=== PATIENT | male | born 1950 | race Two or more races ===

== ENCOUNTER 2017-12-10 23:38 | Inpatient (IN) | payer MEDICAID, MEDICARE, OTHER ==
[~2017-12-10] VITALS: Ht 165.1 cm; Wt 92.6 kg
[2017-12-11] MEDS: HYDROcodone-ACET 10/325MG TAB PO ONE ×2 (03:00→07:48)
[2017-12-11] MEDS ORDERED: ACETAMINOPHEN 500 MG TAB PO PRN (04:15)
[2017-12-11] MEDS ORDERED: ONDANSETRON HCL 4 MG/2 ML VIAL IV PRN (04:15)
[2017-12-11] MEDS: SODIUM CHLORIDE 0.9% 1,000 ML IV SCH ×3 (05:55→23:25)
[2017-12-11] MEDS: HYDROcodone-ACET 5/325MG TAB PO PRN ×4 (06:47→23:15)
[2017-12-11] MEDS: CLINDAMYCIN 600MG IV 50 ML IV SCH ×3 (06:48→22:42)
[2017-12-11 07:39] VITALS: BP 116/85
[2017-12-11 08:10] VITALS: BP 151/87
[2017-12-11 08:59] VITALS: BP 151/87
[2017-12-11] MEDS: FAMOTIDINE 20 MG TAB PO SCH (10:21)
[2017-12-11] MEDS: cefTRIAXone 1GM/10ml IVPUSH 10 ML IV SCH (10:21)
[2017-12-11 11:15] LABS: Basophils # (auto) 0.1 uL; Basophils % (auto) 0.6 % (0.0-2.0); Eosinophils # (auto) 0.1 uL; Eosinophils % (auto) 1.3 % (0.0-7.0); Hematocrit 36.1 % (41.0-53.0); Hemoglobin 12.5 g/dL (13.5-17.5); Lymphocytes # (auto) 1.6 uL; Lymphocytes % (auto) 16.1 % (10.0-50.0); Mean Corpuscular Hemoglobin 30.8 pg (28.0-32.0); Mean Corpuscular Hgb Conc. 34.7 g/dL (32.0-36.0); Mean Corpuscular Volume 88.8 fL (80.0-100.0); Monocytes # (auto) 0.8 uL; Monocytes % (auto) 8.6 % (0.0-12.0); Neutrophils # (auto) 7.2 uL; Neutrophils % (auto) 73.4 % (37.0-80.0); Platelet Count (auto) 233 10^3/uL (140-450); Red Blood Cells 4.07 10^6/uL (4.5-5.90); Red Cell Distribution Width 13.5 % (11.8-14.3); White Blood Cell 9.8 10^3/uL (4.4-10.8)
[2017-12-11 11:27] LABS: INR 0.94 (0.9-1.15); Partial Thromboplastin Time 33.1 sec (23.78-33.04); Prothrombin Time 10.1 sec (9.27-12.13)
[2017-12-11 11:32] LABS: BUN/Creatinine Ratio 19.4; Calcium 8.1 mg/dL (8.5-10.1); Potassium 3.2 mmol/L (3.5-5.1)
[2017-12-11 11:40] LABS: Urine Bacteria NONE SEEN /hpf (None Seen); Urine Blood Negative /uL (Negative); Urine Specific Gravity 1.024 (1.001-1.035); Urine WBC 1 /hpf (0 - 3)
[2017-12-11 11:54] LABS: Alcohol, Urine < 3.0 mg/dL (0-5); Amphetamine Screen, Urine NEGATIVE (NEGATIVE); Barbiturate Scree,Urine NEGATIVE (NEGATIVE); Benzodiazephine Screen, Urine NEGATIVE (NEGATIVE); Cannabinoid Screen, Urine NEGATIVE (NEGATIVE); Cocaine Screen, Urine NEGATIVE (NEGATIVE); Opiate Scree,Urine POSITIVE (NEGATIVE); Phencyclidine Screen, Urine NEGATIVE (NEGATIVE)
[2017-12-11] MEDS ORDERED: DEXTROSE (50%) 50ML SYRG IV PRN (12:00)
[2017-12-11] MEDS ORDERED: POTASSIUM CHL 20 Meq TABLET PO ONE (12:00)
[2017-12-11] MEDS: InsuLIN REG 1unit/0.01ml Soln (100units/ml) SC SCH ×2 (12:00→18:27)
[2017-12-11] MEDS ORDERED: METOPROLOL TARTRATE 25 MG TAB PO ONE (12:00)
[2017-12-11] MEDS: ACCU-CHEK COMFORT CURVE STRIP VI SCH ×2 (12:22→17:31)
[2017-12-11 12:41] VITALS: BP_SYST 101; BP_SYST 171; BP_DIAS 60; BP_DIAS 92
[2017-12-11 16:55] VITALS: BP 144/83
[2017-12-11 22:00] VITALS: BP 136/71
[2017-12-11] MEDS: METOPROLOL TARTRATE 25 MG TAB PO SCH (22:42)
[2017-12-12] MEDS: InsuLIN REG 1unit/0.01ml Soln (100units/ml) SC SCH ×4 (01:13→18:05)
[2017-12-12] MEDS: HYDROcodone-ACET 5/325MG TAB PO PRN ×2 (04:22→09:08)
[2017-12-12 05:14] VITALS: BP 127/53
[2017-12-12] MEDS: CLINDAMYCIN 600MG IV 50 ML IV SCH ×3 (06:14→21:22)
[2017-12-12] MEDS: ACCU-CHEK COMFORT CURVE STRIP VI SCH ×4 (06:14→18:02)
[2017-12-12 08:08] VITALS: BP 160/90
[2017-12-12 09:00] VITALS: BP 160/90
[2017-12-12] MEDS: FAMOTIDINE 20 MG TAB PO SCH (09:09)
[2017-12-12] MEDS: cefTRIAXone 1GM/10ml IVPUSH 10 ML IV SCH (10:26)
[2017-12-12] MEDS: METOPROLOL TARTRATE 25 MG TAB PO SCH ×2 (10:51→21:22)
[2017-12-12] MEDS ORDERED: ceFAZolin 1GM/50ML 50 ML IV ONE (12:34)
[2017-12-12] MEDS ORDERED: GLYCOPYRROLATE 0.2 MG/ML 1ML VIAL IV ONE (12:45)
[2017-12-12] MEDS ORDERED: ROCURONIUM 10MG/ML 10ML VIAL IV ONE (12:45)
[2017-12-12] MEDS ORDERED: PROPOFOL 10 MG/ML 20 ML IV ONE (12:45)
[2017-12-12] MEDS ORDERED: NEOSTIGMINE 1 MG/ML INJ (10mg/10ML VIAL) IV ONE (12:45)
[2017-12-12] MEDS ORDERED: fentaNYL CITRATE 100 MCG/2 ML VL ONE (12:49)
[2017-12-12 13:00] VITALS: BP 128/70
[2017-12-12] MEDS ORDERED: hydrALAZINE HCL 20 MG/ML VL IV PRN (13:45)
[2017-12-12] MEDS ORDERED: ONDANSETRON HCL 4 MG/2 ML VIAL IV ONE (13:45)
[2017-12-12] MEDS ORDERED: ePHEDrine SULFATE 50 MG/ML AMP IV PRN (13:45)
[2017-12-12] MEDS: MORPHINE SULF INJ 2 MG/ML SYRINGE 1ML IV PRN ×2 (16:38→21:22)
[2017-12-12 17:18] VITALS: BP 153/77
[2017-12-12] MEDS: SODIUM CHLORIDE 0.9% 1,000 ML IV SCH ×2 (19:01→21:23)
[2017-12-12] MEDS: TEMAZEPAM 15 MG CAP PO PRN (21:21)
[2017-12-12 22:13] VITALS: BP 139/86
[2017-12-13] MEDS: ACCU-CHEK COMFORT CURVE STRIP VI SCH ×5 (01:04→23:02)
[2017-12-13 05:00] VITALS: BP 143/73
[2017-12-13] MEDS: MORPHINE SULF INJ 2 MG/ML SYRINGE 1ML IV PRN ×4 (05:11→21:46)
[2017-12-13] MEDS: CLINDAMYCIN 600MG IV 50 ML IV SCH ×3 (05:47→21:45)
[2017-12-13] MEDS: SODIUM CHLORIDE 0.9% 1,000 ML IV SCH ×2 (05:47→17:13)
[2017-12-13] MEDS: InsuLIN REG 1unit/0.01ml Soln (100units/ml) SC SCH ×5 (05:48→23:04)
[2017-12-13] MEDS: FAMOTIDINE 20 MG TAB PO SCH (08:08)
[2017-12-13] MEDS: cefTRIAXone 1GM/10ml IVPUSH 10 ML IV SCH (08:17)
[2017-12-13] MEDS: METOPROLOL TARTRATE 25 MG TAB PO SCH ×2 (08:17→21:45)
[2017-12-13 08:57] LABS: Basophils # (auto) 0.1 uL; Basophils % (auto) 0.8 % (0.0-2.0); Eosinophils # (auto) 0.3 uL; Eosinophils % (auto) 4.1 % (0.0-7.0); Hematocrit 36.7 % (41.0-53.0); Hemoglobin 12.5 g/dL (13.5-17.5); Lymphocytes # (auto) 2.3 uL; Lymphocytes % (auto) 28.9 % (10.0-50.0); Mean Corpuscular Hemoglobin 30.5 pg (28.0-32.0); Mean Corpuscular Hgb Conc. 34.2 g/dL (32.0-36.0); Mean Corpuscular Volume 89.1 fL (80.0-100.0); Monocytes # (auto) 0.7 uL; Monocytes % (auto) 8.2 % (0.0-12.0); Neutrophils # (auto) 4.6 uL; Nucleated Red Blood Cells % 0.1 %; Platelet Count (auto) 241 10^3/uL (140-450); Red Blood Cells 4.11 10^6/uL (4.5-5.90); Red Cell Distribution Width 13.4 % (11.8-14.3)
[2017-12-13 09:04] VITALS: BP 129/74
[2017-12-13 09:10] LABS: Albumin 2.8 g/dL (3.4-5.0); BUN/Creatinine Ratio 11.1; Bilirubin, Total 0.5 mg/dL (0.2-1.0); Calcium 8.1 mg/dL (8.5-10.1); Potassium 3.4 mmol/L (3.5-5.1); Total Protein 7.3 g/dL (6.4-8.2)
[2017-12-13] MEDS ORDERED: POTASSIUM CHL 20 Meq TABLET PO ONE (09:45)
[2017-12-13] MEDS ORDERED: fentaNYL CITRATE 100 MCG/2 ML VL IV ONE (10:00)
[2017-12-13 12:29] VITALS: BP 148/78
[2017-12-13 17:00] VITALS: BP 158/93
[2017-12-13] MEDS: HYDROcodone-ACET 5/325MG TAB PO PRN (20:25)
[2017-12-13 21:12] VITALS: BP 147/90
[2017-12-13] MEDS: TEMAZEPAM 15 MG CAP PO PRN (21:46)
[2017-12-14] MEDS: HYDROcodone-ACET 5/325MG TAB PO PRN ×3 (01:18→19:59)
[2017-12-14] MEDS: MORPHINE SULF INJ 2 MG/ML SYRINGE 1ML IV PRN ×4 (02:38→14:47)
[2017-12-14] MEDS: SODIUM CHLORIDE 0.9% 1,000 ML IV SCH ×3 (04:00→22:46)
[2017-12-14 04:31] VITALS: BP 156/64
[2017-12-14 05:54] LABS: BUN/Creatinine Ratio 18.1; Calcium 8.1 mg/dL (8.5-10.1); Potassium 4.2 mmol/L (3.5-5.1)
[2017-12-14] MEDS: InsuLIN REG 1unit/0.01ml Soln (100units/ml) SC SCH ×3 (06:00→16:42)
[2017-12-14] MEDS: CLINDAMYCIN 600MG IV 50 ML IV SCH ×3 (06:06→22:33)
[2017-12-14] MEDS: ACCU-CHEK COMFORT CURVE STRIP VI SCH ×3 (06:07→16:42)
[2017-12-14 08:00] VITALS: BP 140/82
[2017-12-14 09:00] VITALS: BP 161/100
[2017-12-14] MEDS: cefTRIAXone 1GM/10ml IVPUSH 10 ML IV SCH (09:14)
[2017-12-14] MEDS: FAMOTIDINE 20 MG TAB PO SCH (09:16)
[2017-12-14] MEDS: METOPROLOL TARTRATE 25 MG TAB PO SCH ×2 (09:16→22:34)
[2017-12-14 11:08] LABS: Basophils # (auto) 0.1 uL; Eosinophils # (auto) 0.3 uL; Hematocrit 35.6 % (41.0-53.0); Hemoglobin 12.1 g/dL (13.5-17.5); Lymphocytes # (auto) 1.9 uL; Lymphocytes % (auto) 29.6 % (10.0-50.0); Mean Corpuscular Hemoglobin 29.9 pg (28.0-32.0); Monocytes # (auto) 0.5 uL; Monocytes % (auto) 8.3 % (0.0-12.0); Neutrophils # (auto) 3.6 uL; Neutrophils % (auto) 56.1 % (37.0-80.0); Nucleated Red Blood Cells % 0.1 %; Platelet Count (auto) 250 10^3/uL (140-450); Red Blood Cells 4.04 10^6/uL (4.5-5.90); Red Cell Distribution Width 13.3 % (11.8-14.3); White Blood Cell 6.4 10^3/uL (4.4-10.8)
[2017-12-14 11:28] LABS: Albumin 2.8 g/dL (3.4-5.0); BUN/Creatinine Ratio 17.8; Bilirubin, Total 0.2 mg/dL (0.2-1.0); Calcium 7.9 mg/dL (8.5-10.1); Potassium 3.6 mmol/L (3.5-5.1); Total Protein 7.1 g/dL (6.4-8.2)
[2017-12-14 13:00] VITALS: BP 144/76
[2017-12-14 17:00] VITALS: BP 145/75
[2017-12-14 21:27] VITALS: BP 175/97
[2017-12-15] MEDS: ACCU-CHEK COMFORT CURVE STRIP VI SCH ×4 (00:12→17:42)
[2017-12-15] MEDS: HYDROcodone-ACET 5/325MG TAB PO PRN ×3 (00:12→18:48)
[2017-12-15] MEDS: InsuLIN REG 1unit/0.01ml Soln (100units/ml) SC SCH ×4 (00:12→18:34)
[2017-12-15] MEDS: MORPHINE SULF INJ 2 MG/ML SYRINGE 1ML IV PRN ×2 (05:14→12:32)
[2017-12-15 05:23] VITALS: BP 148/62
[2017-12-15 05:26] VITALS: BP 148/75
[2017-12-15] MEDS: CLINDAMYCIN 600MG IV 50 ML IV SCH ×2 (06:43→14:46)
[2017-12-15 08:00] VITALS: BP 138/78
[2017-12-15] MEDS: cefTRIAXone 1GM/10ml IVPUSH 10 ML IV SCH (08:36)
[2017-12-15] MEDS: SODIUM CHLORIDE 0.9% 1,000 ML IV SCH (08:36)
[2017-12-15] MEDS: FAMOTIDINE 20 MG TAB PO SCH (08:37)
[2017-12-15] MEDS: METOPROLOL TARTRATE 25 MG TAB PO SCH (08:37)
[2017-12-15 08:48] VITALS: BP 162/94
[2017-12-15 13:00] VITALS: BP 153/93
[2017-12-15 17:00] VITALS: BP 136/77
== END 2017-12-15 18:52 | disposition home or self-care (01) | DRG 602 ==
LOC: ER 23:38 → OVERFLOW 23:39 → WEST WING 12-11 06:20
PROVIDERS: ADMIT Nurse Practitioner Family; ATTEND Internal Medicine
PROC: 0Y910ZZ Drainage of Left Buttock, Open Approach (ICD-10-PCS; principal; 2017-12-12 12:45)
DX: L02.31 Cutaneous abscess of buttock (principal); E43 Unspecified severe protein-calorie malnutrition; I10 Essential (primary) hypertension; E11.9 Type 2 diabetes mellitus without complications; E66.01 Morbid (severe) obesity due to excess calories; I25.10 Atherosclerotic heart disease of native coronary artery without angina pectoris; Z91.14 Patient's other noncompliance with medication regimen; Z87.442 Personal history of urinary calculi; Z86.14 Personal history of Methicillin resistant Staphylococcus aureus infection; Y93.89 Activity, other specified; Z68.34 Body mass index [BMI] 34.0-34.9, adult
CPT/HCPCS: 36415; 71045; 80048; 80053; 80307; 81001; 82962; 83036; 85025; 85610; 85730; 87040; 87070; 87075; 87077; 87186; 87205; 93005; A6257; J0690; J0696; J1815; J2704; J3490